=== PATIENT | female | born 1965 | race American Indian/Alaskan Native ===

== ENCOUNTER 2017-12-26 06:42 | Day surgery (SDC) | payer MEDICAID ==
[2017-12-26 08:29] VITALS: BMI 28.1
[2017-12-26 08:39] VITALS: O2SAT 100
[2017-12-26] MEDS ORDERED: ceFAZolin 1 gm in NS 1 GM/100 ML BAG IVPB ONE (10:37)
[2017-12-26] MEDS ORDERED: Lidocaine/Epinephrine 1% 1:100000 10 ML IJ ONE (10:37)
[2017-12-26] MEDS ORDERED: Bupivacaine 0.25% 20 ML INJ IJ ONE (10:37)
[2017-12-26] MEDS ORDERED: ceFAZolin 1 gm FROZEN Premix 1 GM/50 ML ML IVPB ONE (10:37)
[2017-12-26] MEDS ORDERED: Propofol 10 mg/ml Inj (20 ML) ONE (12:08)
[2017-12-26] MEDS ORDERED: Midazolam 2 MG/2 ML VIAL ONE (12:10)
[2017-12-26] MEDS ORDERED: HYDROmorphone 0.5 mg/0.5 ml ISec IVP PRN (12:49)
[2017-12-26 15:53] VITALS: RESP 16
[2017-12-26 17:23] VITALS: BP 147/90; PULSE 76; TEMP 97.7
--- NOTE | 2017-12-27 00:46 | OP ---
Copied To: Elton Sanches MD Attending MD: Elton Sanches MD PROCEDURE DATE: 12/26/2017 PREOPERATIVE DIAGNOSIS: Left breast fibroadenoma. POSTOPERATIVE DIAGNOSIS: Left breast fibroadenoma. PROCEDURES DONE: Preop needle localization and left breast lumpectomy including fibroadenoma. SURGEON: The procedure was done by Elton mei MD. BAND TEACHER: CLYDE Rodarte ANESTHESIA: General endotracheal tube anesthesia. ESTIMATED BLOOD LOSS: Around 10 mL. DRAINS: None. PATHOLOGY: Left breast lumpectomy specimen was sent for the Radiology as well as for the Pathology. COMPLICATIONS: None. INTRAOPERATIVE FINDINGS: The patient had left breast preop needle placement on lower outer quadrant. DESCRIPTION OF PROCEDURE: On intraoperative steps, this is a 52-year-old female who was diagnosed with left breast fibroadenoma, status post biopsy, and the patient was very anxious, and the patient was consented for the left breast lumpectomy with preop needle localization, and the patient was brought to the OR, placed supine on operating table. After induction of the anesthesia, the left breast was prepped and draped in usual sterile fashion. The patient had a preop needle localization done few hours before bringing to the OR, and after that, the guidewire was checked for the position. The elliptical incision was made in the left upper outer quadrant and upper and lower flap was created. The dissection was carried down deep up to the large fibroadenoma. It was approximately 3 x 4 cm size, and the fibroadenoma with surrounding normal ream of breast tissue with guidewire and clip was completely excised, and it was sent for radiological confirmation, and wound was irrigated. Wound was closed in two layers, subcu with a 2-0 Vicryl, skin with a 4-0 Monocryl. Dry sterile dressing was applied. The radiological confirmation was done intraoperatively for complete removal of the specimen, and the patient was sent to the postanesthesia care unit in stable condition. Elton Sanches MD D 12/26/2017 13:50:35
--- NOTE | 2017-12-27 08:04 | US ---
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 TECHNIQUE/FINDINGS: Following full discussion of risks and benefits of the procedure with the patient including alternatives, patient freely gave written consent. Timeout was called for ultrasound guided wire needle localization procedure for lesion in the left breast 4 o'clock radius 3 cm from the nipple. The mass was preliminary identified with ultrasound in the expected location and the overlying skin was marked for procedure. In a sterile field, overlying skin was cleaned. 3.0 cc of lidocaine was utilized for skin anesthesia and 3.0cc of lidocaine was utilized for deep tissue anesthesia. A 5.0 cm wire was placed through the lesion in question with ultrasound guidance. Longitudinal and transverse projections demonstrated the needle localization wire to traverse the entire lesion through its center. It passes immediately cephalad to the previously placed biopsy clip The wire was properly secured in good position. Patient tolerated the procedure well with no complications. Adequate positioning is confirmed on mediolateral and craniocaudal postprocedure mammography. Postoperative specimen radiograph demonstrates the prior biopsy clip, wire and specimen in a solitary unit. OTHER FINDINGS: None. IMPRESSION: Status post successful ultrasound-guided needle localization adequate lumpectomy result submitted by specimen radiography. We await final pathological tissue diagnosis which time an addendum this report can be provided.
== END 2017-12-26 17:14 | disposition home or self-care (01) ==
LOC: C.SDS 06:42
PROVIDERS: ATTEND Surgery Surgical Critical Care
DX: D24.2 Benign neoplasm of left breast (principal)
CPT/HCPCS: 19125; 19285; 85018; 88307; J0360; J0690; J1885; J2001; J2250; J2405; J2704; J3010

== ENCOUNTER 2018-09-24 16:18 | Outpatient (CLI) | payer MEDICAID | END 2018-09-24 16:19 | disposition home or self-care (01) | LOC: C.MAMMO 16:18 | DX: Z12.31 Encounter for screening mammogram for malignant neoplasm of breast (principal) ==